=== PATIENT | female | born 1980 | race African-American/Black ===

== ENCOUNTER 2018-04-25 13:31 | Emergency (ER) | payer OTHER ==
[~2018-04-25] VITALS: Ht 160 cm; Wt 55.0 kg
[2018-04-25 16:07] VITALS: BP 111/88
== END 2018-04-25 16:12 | disposition home or self-care (01) ==
LOC: ER 13:31
DX: H11.31 Conjunctival hemorrhage, right eye (principal); R22.0 Localized swelling, mass and lump, head; F31.9 Bipolar disorder, unspecified
CPT/HCPCS: 81025; 99281; 99282

== ENCOUNTER 2018-07-24 17:48 | Emergency (ER) | payer OTHER ==
[~2018-07-24] VITALS: Ht 157.5 cm; Wt 52.0 kg
[2018-07-24] MEDS ORDERED: ACETAMINOPHEN 325MG TABLET PO ONE ×2 (22:15→22:30)
[2018-07-25 00:16] VITALS: BP 132/90
== END 2018-07-25 00:21 | disposition home or self-care (01) ==
LOC: ER 17:48
DX: R51 Headache (principal); F31.9 Bipolar disorder, unspecified
CPT/HCPCS: 81025; 99284